=== PATIENT | female | born 1980 | race Caucasian/White ===

== ENCOUNTER 2017-10-12 19:04 | Emergency (ER) | payer OTHER ==
[2017-10-12] MEDS ORDERED: Adenosine 12 MG/4 ML SDV ONE ×2 (19:28→19:38)
[2017-10-12] MEDS ORDERED: Sodium Chloride 0.9% 2,000 ML IV SCH (19:45)
[2017-10-12] MEDS ORDERED: Magnesium Sulfate/Water 2 GM in Premix Bag 1 BAG IV ONE (19:46)
[2017-10-12] MEDS ORDERED: Metoprolol Tartrate 5 MG/5 ML SDV IVPUSH ONE (19:55)
[2017-10-12 20:24] VITALS: BP 142/93
--- NOTE | 2017-10-12 20:37 | EDM.PDOC ---
ED HPI GENERAL MEDICAL PROBLEM - General Chief Complaint: Chest Pain Stated Complaint: DIZZY,RACING HEART BEAT Time Seen by Provider: 10/12/17 19:11 Source of Information: Reports: Patient History Limitations: Reports: No Limitations - History of Present Illness INITIAL COMMENTS - FREE TEXT/NARRATIVE: The patient is a 37-year-old female with a chief complaint of palpitations, racing heart, and dizziness. She did a boot camp workout and after the workout suddenly noticed that she felt dizzy and her heart was racing. She exercises regularly and states that this workout was not unusual for her. She currently complains of a pounding heart and dizziness. No chest pain. No shortness of breath. She is uncomfortable. No syncope. No lower extremity pain or swelling or recent immobilization. No fever, recent illness, cough, abdominal pain, vomiting, diarrhea, or urinary symptoms. She states that throughout her life she 's had several episodes of feeling like her heart was racing. Previously, these have always terminated without medical intervention. Usually they've just lasted minutes. States that sometimes they've been terminated by her moving her head down to her chest. She's never been aware of having a cardiac problem and has never seen a healthcare administrator for this. Chest Pain Score (Numeric/FACES): 3 - Related Data Allergies Allergy/AdvReac Type Severity Reaction Status Date / Time chlorpheniramine AdvReac Arrhythmias Verified 10/12/17 19:15 [From Tylenol Cold Multi-Sympt Night] dextromethorphan AdvReac Arrhythmias Verified 10/12/17 19:15 [From Tylenol Cold Multi-Sympt Night] diphenhydramine AdvReac Arrhythmias Verified 10/12/17 19:15 [From Benadryl] doxylamine AdvReac Arrhythmias Verified 10/12/17 19:15 [From Tylenol Cold Multi-Sympt Night] phenylephrine AdvReac Arrhythmias Verified 10/12/17 19:15 [From Tylenol Cold Multi-Sympt Night] Home Meds: Home Meds Control. 03/24/16 [History] DULoxetine [Cymbalta] 20 mg PO DAILY 10/12/17 [History] Past Medical History [employer] TE[employer]IAN History: Reports: - Past Surgical History Female Surgical History: Reports: Section Social & Family History - Tobacco Use Smoking Status *Q: Never Smoker Second Hand Smoke Exposure: No - Caffeine Use Caffeine Use: Reports: Coffee - Recreational Drug Use Recreational Drug Use: No ED ROS GENERAL - Review of Systems Review Of Systems: See Below Constitutional: Reports: Malaise. Denies: Fever HEENT: Reports: No Symptoms Respiratory: Denies: Cough Cardiovascular: Reports: Lightheadedness, Palpitations. Denies: Chest Pain Endocrine: Reports: No Symptoms GI/Abdominal: Reports: Nausea. Denies: Abdominal Pain : Reports: No Symptoms Musculoskeletal: Reports: No Symptoms Skin: Reports: No Symptoms Neurological: Reports: No Symptoms Psychiatric: Reports: No Symptoms Hematologic/Lymphatic: Reports: No Symptoms Immunologic: Reports: No Symptoms ED EXAM, GENERAL - Physical Exam Exam: See Below Exam Limited By: No Limitations General Appearance: Alert, WD/WN, Anxious, Mild Distress Eye Exam: Bilateral Eye: EOMI, PERRL Ears: Normal External Exam Nose: Normal Inspection, Nasal Flaring Throat/Mouth: Normal Oropharynx, Normal Voice Head: Atraumatic, Normocephalic Respiratory/Chest: No Respiratory Distress, Lungs Clear, Normal Breath Sounds, No Accessory Muscle Use Cardiovascular: Normal Peripheral Pulses, No Edema, No Murmur, Tachycardia, Other (Regular) GI/Abdominal: Soft, Non-Tender, No Distention Back Exam: Normal Inspection Extremities: Normal Inspection Neurological: Alert, Oriented, Normal Cognition, No Motor/Sensory Deficits Psychiatric: Normal Affect, Normal Mood Skin Exam: Warm, Dry, Intact, Normal Color, No Rash Course - Vital Signs Last Recorded V/S: Last Vital Signs Temp 37.0 C 10/12/17 19:12 Pulse 55 L 10/12/17 20:24 Resp 16 10/12/17 20:24 BP 142/93 H 10/12/17 20:24 Pulse Ox 100 10/12/17 20:24 - Orders/Labs/Meds Orders: Active Orders 24 hr Category Date Time Status EKG 12 Lead [EKG Documentation Completion] [RC] STAT Care 10/12/17 19:13 Active EKG 12 Lead [EKG Documentation Completion] [RC] STAT Care 10/12/17 19:41 Active EKG 12 Lead [EKG Documentation Completion] [RC] STAT Care 10/12/17 19:45 Active Holter Monitor 48 Hours [RC] CONTINUOUS Care 10/12/17 20:48 Active Chest 1V Frontal [CR] Stat Exams 10/12/17 19:13 Taken Sodium Chloride 0.9% [Normal Saline] 2,000 ml Med 10/12/17 19:45 Active IV ASDIRECTED Medication Orders Sodium Chloride (Normal Saline) 2,000 mls @ 999 mls/hr IV ASDIRECTED AIDAN Last Admin: 10/12/17 19:54 Dose: 999 mls/hr Labs: Laboratory Tests 10/12/17 10/12/17 Range/Units 19:15 19:15 WBC 10.24 H (3.98-10.04) K/mm3 RBC 4.69 (3.98-5.22) M/mm3 Hgb 14.2 (11.2-15.7) gm/L Hct 43.0 (34.1-44.9) % MCV 91.7 (79.4-94.8) fl MCH 30.3 (25.6-32.2) pg MCHC 33.0 (32.2-35.5) g/dl RDW Std Deviation 42.1 (36.4-46.3) fL Plt Count 242 (182-369) K/mm3 MPV 10.2 (9.4-12.3) fl Neut % (Auto) 64.5 (34.0-71.1) % Lymph % (Auto) 26.2 (19.3-51.7) % [place] % (Auto) 8.0 (4.7-12.5) % Eos % (Auto) 0.9 (0.7-5.8) Baso % (Auto) 0.3 (0.1-1.2) % Neut # (Auto) 6.61 H (1.56-6.13) K/mm3 Lymph # (Auto) 2.68 (1.18-3.74) K/mm3 [place] # (Auto) 0.82 H (0.24-0.36) K/mm3 Eos # (Auto) 0.09 (0.04-0.36) K/mm3 Baso # (Auto) 0.03 (0.01-0.08) K/mm3 Sodium 139 (136-145) mEq/L Potassium 3.6 (3.5-5.1) mEq/L Chloride 100 (98-107) mEq/L Carbon Dioxide 25 (21-32) mEq/L Anion Gap 17.6 H (5-15) BUN 18 (7-18) mg/dL Creatinine 1.1 H (0.55-1.02) mg/dL Est Cr Clr Drug Dosing 70.64 mL/min Estimated GFR (MDRD) 56 (>60) mL/min BUN/Creatinine Ratio 16.4 (14-18) Glucose 124 H (74-106) mg/dL Calcium 10.0 (8.5-10.1) mg/dL Magnesium 1.7 L (1.8-2.4) mg/dl Total Bilirubin 0.3 (0.2-1.0) mg/dL AST 35 (15-37) U/L ALT 43 (14-59) U/L Alkaline Phosphatase 66 (46-116) U/L Troponin I < 0.017 (0.00-0.056) ng/mL Total Protein 8.0 (6.4-8.2) g/dl Albumin 4.1 (3.4-5.0) g/dl Globulin 3.9 gm/dL Albumin/Globulin Ratio 1.1 (1-2) Meds: Medications Generic Name Dose Route Start Last Admin Trade Name Freq PRN Reason Stop Dose Admin Sodium Chloride 2,000 mls @ 999 mls/hr 10/12/17 19:45 10/12/17 19:54 Normal Saline IV 999 mls/hr ASDIRECTED AIDAN Administration Discontinued Medications Generic Name Dose Route Start Last Admin Trade Name Freq PRN Reason Stop Dose Admin Adenosine Confirm 10/12/17 19:28 10/12/17 20:00 Adenocard Administered 10/12/17 19:29 Not Given Dose 12 mg .ROUTE .STK-MED ONE Adenosine Confirm 10/12/17 19:38 10/12/17 20:00 Adenocard Administered 10/12/17 19:39 Not Given Dose 12 mg .ROUTE .STK-MED ONE Magnesium Sulfate 2 gm/ Premix 50 mls @ 25 mls/hr 10/12/17 19:46 10/12/17 19: 55 IV 10/12/17 21:45 25 mls/hr ONETIME ONE Administration Metoprolol Tartrate 5 mg 10/12/17 19:55 10/12/17 20:00 Lopressor IVPUSH 10/12/17 19:56 5 mg ONETIME ONE Administration - Re-Assessments/Exams Free Text/Narrative Re-Assessment/Exam: 10/12/17 20:34 Patient was initially markedly tachycardic with heart rate upon arrival of 200. While was in the room, initially the heart rate was variable from around 164-190 , with rate largely in the 180s. It did appear regular on the monitor but due to the fast rate was hard to be certain. 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 a-fib/flutter. with a right bundle branch block and a rate of 164. Prior EKG does show that she has previously had a right bundle branch block. 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 Patient was given 5 mg of metoprolol IV. After this, she converted to normal sinus rhythm. Rate was originally generally bradycardic with rate initially around 40, this increased to about high 50s. She felt much better. 10/12/17 23:19 10/12/17 23:21 Continues to be in NSR with rate in the high 50's and normal BP. Would like to go home. Arranged for holter monitor. She is to f/u this week with PCP for further care, would likely benefit from outpt echo and referral to cardiology/ EP. Discussed return precautions. Departure - Departure Time of Disposition: 23:08 Disposition: Home, Self-Care 01 Clinical Impression: Atrial tachycardia Instructions: Sinus Tachycardia Referrals: Karolyn Grimes [employer]ER [Primary Care Provider] - Forms: ED Department Discharge Additional Instructions: 1. Follow up with your primary care for further testing and referral to cardiology. Your EKG when you arrived here showed an atrial tachyarrhythmia, your PCP can request records for more details. 2. Return to the ED if you have any new episodes of palpitations, chest pain, shortness of breath, dizziness, or passing out. - My Orders Last 24 Hours: My Active Orders 10/12/17 19:13 EKG 12 Lead [EKG Documentation Completion] [RC] STAT Chest 1V Frontal [CR] Stat 10/12/17 19:41 EKG 12 Lead [EKG Documentation Completion] [RC] STAT 10/12/17 19:45 EKG 12 Lead [EKG Documentation Completion] [RC] STAT Sodium Chloride 0.9% [Normal Saline] 2,000 ml IV ASDIRECTED 10/12/17 20:48 Holter Monitor 48 Hours [RC] CONTINUOUS - Assessment/Plan Last 24 Hours: My Active Orders 10/12/17 19:13 EKG 12 Lead [EKG Documentation Completion] [RC] STAT Chest 1V Frontal [CR] Stat 10/12/17 19:41 EKG 12 Lead [EKG Documentation Completion] [RC] STAT 10/12/17 19:45 EKG 12 Lead [EKG Documentation Completion] [RC] STAT Sodium Chloride 0.9% [Normal Saline] 2,000 ml IV ASDIRECTED 10/12/17 20:48 Holter Monitor 48 Hours [RC] CONTINUOUS
--- NOTE | 2017-10-13 06:58 | CR ---
Chest: Portable view of the chest was obtained. Comparison: No prior chest x-ray. Heart size and mediastinum are normal. Lungs are clear. Bony structures are grossly intact. Impression: 1. Nothing acute is seen on portable chest x-ray. Diagnostic code #1
== END 2017-10-12 23:22 | disposition home or self-care (01) ==
LOC: JD.ED 19:04
DX: I47.1 Supraventricular tachycardia (principal); Z88.8 Allergy status to other drugs, medicaments and biological substances; Z79.899 Other long term (current) drug therapy
CPT/HCPCS: 36415; 71045; 80053; 83735; 84484; 85025; 93005; 93225; 93226; 96365; 96366; 96375; 99285; J7040; 93010; 99284-25; J3475; J3490

== ENCOUNTER 2018-03-20 11:28 | Emergency (ER) | payer OTHER ==
[2018-03-20] MEDS ORDERED: Adenosine 12 MG/4 ML SDV ONE (11:34)
[2018-03-20] MEDS ORDERED: Adenosine 6 MG/2 ML SDV ONE (11:34)
[2018-03-20] MEDS ORDERED: Sodium Chloride 0.9% 1,000 ML IV SCH (11:45)
[2018-03-20] MEDS ORDERED: Sodium Chloride 0.9% 10 ML Syringe FLUSH PRN (11:45)
[2018-03-20] MEDS ORDERED: Adenosine 6 MG/2 ML SDV IVPUSH ONE (11:46)
[2018-03-20] MEDS ORDERED: Adenosine 12 MG/4 ML SDV IVPUSH ONE (11:47)
--- NOTE | 2018-03-20 13:46 | EDM.PDOC ---
ED HPI GENERAL MEDICAL PROBLEM - General Chief Complaint: Cardiovascular Problem Stated Complaint: RACING HEARTBEAT Time Seen by Provider: 03/20/18 11:44 Source of Information: Reports: Patient History Limitations: Reports: No Limitations - History of Present Illness INITIAL COMMENTS - FREE TEXT/NARRATIVE: The patient presents with SVT. She has a history of this and has been in multiple times. She is scheduled for an ablation May 10. She was feeling good. Ate a normal breakfast and she was swimming when this started. Nothing out of the ordinary. She has some tightness and shortness of breath. She has no abdominal pain, nausea or vomiting. She has no other health problems. Onset: Sudden Duration: Minutes: Location: Reports: Chest Quality: Reports: Other (tightness) Severity: Mild Improves with: Reports: None Worsens with: Reports: None Associated Symptoms: Reports: Chest Pain. Denies: Fever/Chills, Headaches, Nausea/Vomiting, Shortness of Breath Headache Pain Score (Numeric/FACES): 5 - Related Data Allergies Allergy/AdvReac Type Severity Reaction Status Date / Time chlorpheniramine AdvReac Arrhythmias Verified 10/12/17 19:15 [From Tylenol Cold Multi-Sympt Night] dextromethorphan AdvReac Arrhythmias Verified 10/12/17 19:15 [From Tylenol Cold Multi-Sympt Night] diphenhydramine AdvReac Arrhythmias Verified 10/12/17 19:15 [From Benadryl] doxylamine AdvReac Arrhythmias Verified 10/12/17 19:15 [From Tylenol Cold Multi-Sympt Night] phenylephrine AdvReac Arrhythmias Verified 10/12/17 19:15 [From Tylenol Cold Multi-Sympt Night] Home Meds: Home Meds Control. 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: - Past Surgical History Female Surgical History: Reports: Section Social & Family History - Tobacco Use Smoking Status *Q: Never Smoker - Caffeine Use Caffeine Use: Reports: Coffee - Recreational Drug Use Recreational Drug Use: No ED ROS GENERAL - Review of Systems Review Of Systems: See Below Constitutional: Reports: No Symptoms HEENT: Reports: No Symptoms Respiratory: Reports: Shortness of Breath Cardiovascular: Reports: Chest Pain, Palpitations Endocrine: Reports: No Symptoms GI/Abdominal: Reports: No Symptoms : Reports: No Symptoms Musculoskeletal: Reports: No Symptoms ED EXAM, GENERAL - Physical Exam Exam: See Below Exam Limited By: No Limitations General Appearance: Alert, No Apparent Distress Ears: Normal External Exam Nose: Normal Inspection Head: Atraumatic, Normocephalic Neck: Normal Inspection Respiratory/Chest: No Respiratory Distress, Lungs Clear, Normal Breath Sounds Cardiovascular: No Edema, No Murmur, Tachycardia GI/Abdominal: Soft, Non-Tender, No Organomegaly, No Mass Back Exam: Normal Inspection Extremities: Normal Inspection Neurological: Alert, Oriented, No Motor/Sensory Deficits EKG INTERPRETATION EKG Date: 03/20/18 Time: 11:36 Rhythm: Other (SVT) EKG Interpretation Comments: Repeat EKG shows a sinus bradycardia at 57 and a RBBB with no acute changes Course - Vital Signs Last Recorded V/S: Last Vital Signs Temp 98.3 F 03/20/18 11:34 Pulse 178 H 03/20/18 11:34 Resp 18 03/20/18 11:34 BP 118/86 03/20/18 11:34 Pulse Ox 100 03/20/18 11:34 - Orders/Labs/Meds Orders: Active Orders 24 hr Category Date Time Status Cardiac Monitoring [RC] . DIRECTED Care 03/20/18 11:45 Active EKG Documentation Completion [RC] STAT Care 03/20/18 11:46 Active Peripheral IV Care [RC] . DIRECTED Care 03/20/18 11:46 Active Sodium Chloride 0.9% [Normal Saline] 1,000 ml Med 03/20/18 11:45 Active IV .BOLUS Sodium Chloride 0.9% [Saline Flush] Med 03/20/18 11:45 Active 10 ml FLUSH ASDIRECTED PRN Peripheral IV Insertion Adult [OM.PC] Stat Oth 03/20/18 11:45 Ordered Medication Orders Sodium Chloride (Normal Saline) 1,000 mls @ 1,000 mls/hr IV .BOLUS AIADN Last Admin: 03/20/18 11:53 Dose: 1,000 mls/hr Sodium Chloride (Saline Flush) 10 ml FLUSH ASDIRECTED PRN PRN Reason: Keep Vein Open Last Admin: 03/20/18 11:54 Dose: 10 ml Labs: Laboratory Tests 03/20/18 03/20/18 Range/Units 11:55 11:55 WBC 7.43 (3.98-10.04) K/mm3 RBC 4.60 (3.98-5.22) M/mm3 Hgb 14.5 (11.2-15.7) gm/L Hct 43.2 (34.1-44.9) % MCV 93.9 (79.4-94.8) fl MCH 31.5 (25.6-32.2) pg MCHC 33.6 (32.2-35.5) g/dl RDW Std Deviation 43.7 (36.4-46.3) fL Plt Count 207 (182-369) K/mm3 MPV 10.3 (9.4-12.3) fl Neut % (Auto) 64.8 (34.0-71.1) % Lymph % (Auto) 25.6 (19.3-51.7) % [place] % (Auto) 7.3 (4.7-12.5) % Eos % (Auto) 1.7 (0.7-5.8) Baso % (Auto) 0.3 (0.1-1.2) % Neut # (Auto) 4.82 (1.56-6.13) K/mm3 Lymph # (Auto) 1.90 (1.18-3.74) K/mm3 [place] # (Auto) 0.54 H (0.24-0.36) K/mm3 Eos # (Auto) 0.13 (0.04-0.36) K/mm3 Baso # (Auto) 0.02 (0.01-0.08) K/mm3 Sodium 139 (136-145) mEq/L Potassium 3.8 (3.5-5.1) mEq/L Chloride 106 (98-107) mEq/L Carbon Dioxide 25 (21-32) mEq/L Anion Gap 11.8 (5-15) BUN 18 (7-18) mg/dL Creatinine 0.9 (0.55-1.02) mg/dL Est Cr Clr Drug Dosing 80.12 mL/min Estimated GFR (MDRD) > 60 (>60) mL/min BUN/Creatinine Ratio 20.0 H (14-18) Glucose 111 H (74-106) mg/dL Calcium 9.6 (8.5-10.1) mg/dL Total Bilirubin 0.2 (0.2-1.0) mg/dL AST 23 (15-37) U/L ALT 35 (14-59) U/L Alkaline Phosphatase 85 (46-116) U/L Troponin I < 0.017 (0.00-0.056) ng/mL Total Protein 7.7 (6.4-8.2) g/dl Albumin 3.8 (3.4-5.0) g/dl Globulin 3.9 gm/dL Albumin/Globulin Ratio 1.0 (1-2) TSH 3rd Generation 1.967 (0.358-3.74) uIU/mL Meds: Medications Generic Name Dose Route Start Last Admin Trade Name Freq PRN Reason Stop Dose Admin Sodium Chloride 1,000 mls @ 1,000 mls/hr 03/20/18 11:45 03/20/18 11:53 Normal Saline IV 1,000 mls/hr .BOLUS AIDAN Administration Sodium Chloride 10 ml 03/20/18 11:45 03/20/18 11:54 Saline Flush FLUSH 10 ml ASDIRECTED PRN Administration Keep Vein Open Discontinued Medications Generic Name Dose Route Start Last Admin Trade Name Freq PRN Reason Stop Dose Admin Adenosine Confirm 03/20/18 11:34 03/20/18 11:54 Adenocard Administered 03/20/18 11:35 Not Given Dose 6 mg .ROUTE .STK-MED ONE Adenosine Confirm 03/20/18 11:34 03/20/18 11:54 Adenocard Administered 03/20/18 11:35 Not Given Dose 12 mg .ROUTE .STK-MED ONE Adenosine 6 mg 03/20/18 11:46 03/20/18 11:40 Adenocard IVPUSH 03/20/18 11:47 6 mg NOW ONE Administration Adenosine 12 mg 03/20/18 11:47 03/20/18 11:43 Adenocard IVPUSH 03/20/18 11:48 12 mg NOW ONE Administration - Re-Assessments/Exams Free Text/Narrative Re-Assessment/Exam: 03/20/18 13:43 The patient is in SVT. I tried vagal maneuvers and there was no changes. I then ordered an IV and 6mg of adenosine and that did not work so I ordered another 12mg of adenosine. That did convert her and she is feeling much better. She has no pain. Her CBC and CMP look good. Her troponin was negative. Her TSH looks good. I will discharge her home. Departure - Departure Time of Disposition: 13:50 Disposition: Home, Self-Care 01 Condition: Good Clinical Impression: SVT (supraventricular tachycardia) Referrals: PCP,None [Primary Care Provider] - Additional Instructions: Please return if you are worse. Follow up with your doctor as scheduled. - My Orders Last 24 Hours: My Active Orders 03/20/18 11:45 Cardiac Monitoring [RC] . DIRECTED Sodium Chloride 0.9% [Normal Saline] 1,000 ml IV .BOLUS Sodium Chloride 0.9% [Saline Flush] 10 ml FLUSH ASDIRECTED PRN Peripheral IV Insertion Adult [OM.PC] Stat 03/20/18 11:46 EKG Documentation Completion [RC] STAT Peripheral IV Care [RC] . DIRECTED - Assessment/Plan Last 24 Hours: My Active Orders 03/20/18 11:45 Cardiac Monitoring [RC] . DIRECTED Sodium Chloride 0.9% [Normal Saline] 1,000 ml IV .BOLUS Sodium Chloride 0.9% [Saline Flush] 10 ml FLUSH ASDIRECTED PRN Peripheral IV Insertion Adult [OM.PC] Stat 03/20/18 11:46 EKG Documentation Completion [RC] STAT Peripheral IV Care [RC] . DIRECTED
[2018-03-20 13:54] VITALS: BP 108/71
== END 2018-03-20 13:53 | disposition home or self-care (01) ==
LOC: JD.ED 11:28
DX: I47.1 Supraventricular tachycardia (principal); Z88.8 Allergy status to other drugs, medicaments and biological substances
CPT/HCPCS: 36415; 80053; 84443; 84484; 85025; 93005; 96361; 96374; 99285; J0153; J7040; J7050; 93010; 99284-25

== ENCOUNTER 2023-10-20 13:10 | Emergency (ER) | payer OTHER ==
[2023-10-20] MEDS: Sodium Chloride 0.9% 10 ML Syringe FLUSH PRN (13:49)
[2023-10-20 13:52] LABS: BASOPHILS PERCENT AUTO 0.3 % (0.0-1.0); EOSINOPHILS ABSOLUTE AUTO 0.1 K/mm3 (0.0-0.4); EOSINOPHILS PERCENT AUTO 1.2 % (0.0-6.0); HEMATOCRIT 39.3 % (37.0-47.0); HEMOGLOBIN 13.5 gm/dl (12.0-16.0); IMMATURE GRAN ABSOLUTE AUTO 0.02 K/mm3 (0.00-0.05); IMMATURE GRAN PERCENT AUTO 0.3 % (0.0-0.4); LYMPHOCYTES ABSOLUTE AUTO 2.1 K/mm3 (1.0-4.8); LYMPHOCYTES PERCENT AUTO 28.3 % (24.0-44.0); MEAN CORPUSCULAR HEMOGLOBIN 31.8 pg (28.0-32.0); MEAN CORPUSCULAR HGB CONC 34.4 g/dl (32.0-36.0); MEAN CORPUSCULAR VOLUME 92.7 fl (83.0-99.0); MONOCYTES ABSOLUTE AUTO 0.5 K/mm3 (0.0-0.8); MONOCYTES PERCENT AUTO 6.1 % (0.0-8.0); NEUTROPHILS ABSOLUTE AUTO 4.7 K/mm3 (1.8-7.7); NEUTROPHILS PERCENT AUTO 63.8 % (41.0-71.0); PLATELET COUNT,PLT 212 K/mm3 (150-400); RED BLOOD CELL COUNT 4.24 M/mm3 (4.10-5.30); WHITE BLOOD CELL COUNT,WBC 7.39 K/mm3 (3.9-11.3)
[2023-10-20 14:13] LABS: A/G RATIO 1.2 (1-2); ALANINE AMINOTRANSFERASE,ALT 28 U/L (14-59); ALBUMIN 4.2 g/dl (3.4-5.0); ALKALINE PHOSPHATASE 56 U/L (46-116); ANION GAP 15.7 (5-15); ASPARTATE AMNIOTRANSFERASE,AST 25 U/L (15-37); BILIRUBIN TOTAL 0.3 mg/dL (0.2-1.0); BLOOD UREA NITROGEN,BUN 13 mg/dL (7-18); BUN/CREATININE RATIO 14.4 (14-18); CALCIUM 9.7 mg/dL (8.5-10.1); CARBON DIOXIDE,CO2 24 mEq/L (21-32); CHLORIDE,CL 100 mEq/L (98-107); CREATININE 0.9 mg/dL (0.55-1.02); EST CRCL DRUG DOSING (CG) 75.45 mL/min; ESTIMATED GFR 81 mL/min (>60); GLUCOSE RANDOM 97 mg/dL (70-99); MAGNESIUM 2.1 mg/dL (1.8-2.4); POTASSIUM,K 3.7 mEq/L (3.5-5.1); PROTEIN TOTAL,TP 7.7 g/dl (6.4-8.2); SODIUM,NA 136 mEq/L (136-145)
[2023-10-20 14:14] LABS: TROPONIN I HIGH SENSITIVITY < 4 pg/mL (<=51)
[2023-10-20 14:41] LABS: APPEARANCE,URINE CLEAR (Clear); BILIRUBIN,URINE NEGATIVE (Negative); COLOR,URINE YELLOW (Yellow); GLUCOSE,URINE NEGATIVE (Negative); KETONES,URINE NEGATIVE (Negative); LEUKOCYTE ESTERASE,URINE NEGATIVE (Negative); NITRITE,URINE NEGATIVE (Negative); OCCULT BLOOD,URINE TRACE-INTACT (Negative); PROTEIN,URINE NEGATIVE (Negative); UROBILINOGEN,URINE 0.2 (0.2-1.0)
[2023-10-20 15:01] LABS: BACTERIA,URINE RARE /hpf (FEW); MUCUS,URINE NOT SEEN /hpf (FEW); RBC,URINE 0-5 /hpf (0-5); SQUAMOUS EPITHELIAL CELLS,UR 0-5 /hpf (0-5); WBC,URINE 0-5 /hpf (0-5)
[2023-10-20] MEDS: Orphenadrine 60 MG/2 ML Inj IV ONE (15:32)
[2023-10-20 17:47] VITALS: BP 121/79; PULSE 57
== END 2023-10-20 16:56 | disposition home or self-care (01) ==
LOC: JD.ED 13:10
DX: M54.6 Pain in thoracic spine (principal); Z88.8 Allergy status to other drugs, medicaments and biological substances; Z88.6 Allergy status to analgesic agent; Z79.899 Other long term (current) drug therapy
CPT/HCPCS: 36415; 71046; 80053; 81001; 83735; 84484; 85025; 93005; 96374; 99284; J2360; J3490